=== PATIENT | male | born 1980 | race Caucasian/White ===

== ENCOUNTER → 2024-03-12 | Outpatient (CLI) | payer BC | LOC: LAB 12:16 → LAB SHORT 12:16 | DX: E11.621 Type 2 diabetes mellitus with foot ulcer (principal); L97.509 Non-pressure chronic ulcer of other part of unspecified foot with unspecified severity | CPT/HCPCS: 87070; 87075; 87077; 87147; 87186; 87205 ==

== ENCOUNTER → 2024-04-20 | Outpatient (CLI) | payer BC ==
[2024-04-20 13:24] LABS: Creatinine, Urine Random 60.2 mg/dL (27.00-270.00)
[2024-04-20 13:26] LABS: Microalb/Creat Ratio UR, Rand 51.661 mg/g (0.000-30.000); Microalbumin, Random Urine 31.1 mg/L (0.000-20.000)
== END | disposition home or self-care (01) ==
LOC: LAB SHORT 09:00 → LAB 09:00 → LAB FUT 03-12 07:55
PROVIDERS: Physician Assistant
DX: E11.65 Type 2 diabetes mellitus with hyperglycemia (principal); E78.5 Hyperlipidemia, unspecified; I10 Essential (primary) hypertension
CPT/HCPCS: 82043; 82570